=== PATIENT | female | born 1995 | race Two or more races ===

== ENCOUNTER 2020-03-06 12:07 | Emergency (ER) | payer MEDICAID ==
[~2020-03-06] VITALS: Ht 165.1 cm; Wt 59.0 kg
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
[2020-03-06] MEDS: AZITHROMYCIN 250 MG TABLET PO ONE (12:39)
[2020-03-06] MEDS: CEFTRIAXONE 500 MG VIAL IM ONE (12:39)
[2020-03-06] MEDS: PLAN B ONE-STEP 1.5 MG TABLET PO (12:39)
[2020-03-06] MEDS ORDERED: PLAN B ONE-STEP 1.5 MG TABLET PO (12:40)
[2020-03-06] MEDS ORDERED: CEFTRIAXONE 500 MG VIAL ONE (12:41)
[2020-03-06] MEDS ORDERED: AZITHROMYCIN 250 MG TABLET ONE (12:41)
[2020-03-06] MEDS ORDERED: LIDOCAINE HCL 1% 20 ML VIAL ONE (12:42)
--- NOTE | 2020-03-06 12:55 | NUR ---
Patient discharged to home in stable condition. Written and verbal after care instructions given. Patient verbalizes understanding of instructions. Stressed follow up or return to ER for worsening s/s.pt will be accompanied by lapd. officer nel [place] at bedside.
[2020-03-06 16:13] VITALS: BP 118/60
== END 2020-03-06 14:00 ==
LOC: ER 12:07
DX: T74.21XA Adult sexual abuse, confirmed, initial encounter (principal)
CPT/HCPCS: A4663; J0696; J3490; Q0144